=== PATIENT | female | born 1950 | race Caucasian/White ===

== ENCOUNTER 2017-02-04 11:21 | Day surgery (SDC) | payer BC ==
[2017-02-04] MEDS ORDERED: MORPHINE SULFATE 2 MG/ML DISP.SYRIN IV PRN (11:36)
[2017-02-04] MEDS ORDERED: ONDANSETRON HCL/PF 2 MG/ML VIAL IV PRN (11:37)
[2017-02-04] MEDS ORDERED: NORMAL SALINE 1,000 ML IV ONE ×2 (12:25→17:00)
--- NOTE | 2017-02-04 14:43 | OR ---
Operative Report - Dictated Report Narrative: Location: Main OR Anesthesia: General Surgeon: Dr. Pagan Preoperative diagnosis: Right mid/proximal ureteral calculus stone(s) Postoperative diagnosis: Same, urethral stricture/narrowing post dilation Procedure: #1 [place] sound urethral dilation followed by Cystoscopy with right stone manipulation without removal and placement of 6 x 24 double-J stent #2 right ESWL Indications: 66-year-old female with right-sided flank pain. CT and KUB with large proximal right ureteral calculus. Discussed options and elected to proceed with above-mentioned procedure. Description: Consent obtained. Patient brought to the operating room where general endotracheal anesthesia was induced. Placed in the dorsal lithotomy position. Prepped and draped. Timeout taken. Attempted to introduce rigid scope with obturator and sheath however urethral angle and caliber did not accommodate scope. Looks to have very significant relapse with very abnormal angulation/flattening of urethra such that it almost looks straight up and down. Not sure but may have had a sling/urethra procedure based on the way the anatomy looked as well. No obvious sling material. I switched her female sounds and with slow constant pressure starting at 16 was able to sneak into the bladder. There was definite narrowing/give the original dilation. Dilated to 24 [place] with no additional difficulty. Rigid scope was then introduced with obturator. With cystoscopy without obvious infection. The urethra was abrased from the dilation but no obvious sling or other foreign body material. Mild nonspecific inflammation. Washing was obtained sent for cytology and culture. She has definite cystocele type change. Right ureteric orifice identified and using angled Glidewire and 5 [place] catheter I was able with manual reduction of the bladder to intubate the right ureteric orifice and from the wire up to the stone which was easily visible on fluoroscopy. 5 [place] catheter was used to manipulate the stone up into the kidney which was performed successfully with prompt drainage of hydronephrotic urine without evidence of significant infection. Over that wire 6 x 24 double-J stent was deployed after removing the 5 [place] catheter. Patient was turned over to the nursing staff for repositioning to the supine position. I returned after this was accomplished localize the stone into planes and a total of 3000 shocks were delivered with a maximal energy of 24 kV to the stone which now resided in the upper pole calyx/portion of the kidney. Stone was easily visible at the beginning of the case. There was good renographic evidence of fragmentation at the end of the case.. I did place a 20 [place] catheter given the urethral dilation in the appearance of the urethra to be safe. I would like that removed tomorrow unless she is very uncomfortable when she wakes up at which point can probably role the [place] takeout today but she is at risk for redevelopment of stricturing. Specimen: Washing for cytology and culture EBL: 5 ml Condition: tolerated procedure Important findings: Successful dilation of urethral stricture with abnormal urethral angle from cystocele. Successful right-sided stone manipulation without removal and subsequent double-J stenting followed by successful right ESWL. Follow-up: I will either see her next Thursday or Thursday in [place] or [place] respectively with KUB prior the plan being to be nothing by mouth in case we proceed with potential ureteroscopy depending on the KUB versus simple stent removal. I will see her in the office the plan being to make decision on whether or not to proceed to OR based on the KUB and patient preference. I would [facility]....
[2017-02-04] MEDS ORDERED: RINGERS SOLUTION,LACTATED 1,000 ML IV ONE (15:15)
[2017-02-04] MEDS ORDERED: oxyCODONE HCL/ACETAMINOPHEN 1 TAB TABLET PO PRN (15:49)
[2017-02-04] MEDS ORDERED: METOCLOPRAMIDE HCL 5 MG/ML VIAL IV PRN (15:50)
[2017-02-04] MEDS ORDERED: KETOROLAC TROMETHAMINE 15 MG/ML VIAL IV PRN (15:51)
[2017-02-04 17:14] VITALS: BP 125/70
== END 2017-02-04 11:22 | disposition home or self-care (01) ==
LOC: AMB 11:21
PROVIDERS: ATTEND Urology
PROC: 0TF3XZZ Fragmentation in Right Kidney Pelvis, External Approach (ICD-10-PCS; 2017-02-04)
PROC: 0WHR8YZ Insertion of Other Device into Genitourinary Tract, Via Natural or Artificial Opening Endoscopic (ICD-10-PCS; principal; 2017-02-04 13:25)
PROC: 0T7D8ZZ Dilation of Urethra, Via Natural or Artificial Opening Endoscopic (ICD-10-PCS; 2017-02-04 13:25)
DX: N20.1 Calculus of ureter (principal); N35.9 Urethral stricture, unspecified; Z87.891 Personal history of nicotine dependence; Z68.41 Body mass index [BMI] 40.0-44.9, adult

== ENCOUNTER 2017-02-11 11:30 | Day surgery (SDC) | payer BC ==
[~2017-02-11 11:30] MED LIST: KETOROLAC TROMETHAMINE 15 MG/ML VIAL IV PRN; METOCLOPRAMIDE HCL 5 MG/ML VIAL IV PRN; MORPHINE SULFATE 2 MG/ML DISP.SYRIN IV PRN; NORMAL SALINE 1,000 ML IV PRN; ONDANSETRON HCL/PF 2 MG/ML VIAL IV PRN; OXYBUTYNIN CHLORIDE 5 MG TABLET PO PRN; oxyCODONE HCL/ACETAMINOPHEN 1 TAB TABLET PO PRN
--- OUTSIDE RECORDS SUMMARY | 2017-02-11 11:34 | XMS REPORT | Continuity of Care Document ---
:1950 Author Organization [employer] [place] [address] Care Team Providers Name Role Phone Unavailable Primary Care Provider Unavailable Source Comments This disclosure is being made pursuant to the [employer] program and maynot contain all information available regarding this patient.[facility] Active Allergies and Adverse Reactions Not on File Current Medications Be aware that medications may not be up to date as of this document. Alwaysverify current medications with the patient. Not on file Active Problems Not on file Most Recent Encounters Date Type Specialty Providers Description 02/11/2017 Orders Only Provider, Not In System Social History Tobacco Use Types Packs/Day Years Used Date Never Assessed Plan of Care Health Maintenance Due Date Last Done Comments Tetanus/Pertussis (1 - Tdap) 1971 Pap Smear 1973 Colonoscopy 2002 Mammogram 2002 Well Adult Visit 2002 Zoster Vaccine 60+ 2012 Influenza Immunization (#1) 2016 Results from Last 3 Months Comprehensive metabolic panel (02/02/2017)CBC auto differential (02/02/2017) Component Value Range WBC Count 13.2 10^3/mL RBC 4.79 10^6/L Hemoglobin 13.6 g/dL Hematocrit 41.5 % Platelets 328 K/L Specimen BLOOD Narrative See Scanned Results 02-02-17 Laboratory Miscellaneous (02/02/2017)CT ABDOMEN AND PELVIS WO CONTRAST (2016)
[2017-02-11] MEDS ORDERED: NORMAL SALINE 1,000 ML IV ONE (13:04)
[2017-02-11] MEDS ORDERED: RINGERS SOLUTION,LACTATED 1,000 ML IV ONE ×2 (13:04→14:15)
--- NOTE | 2017-02-11 14:27 | OR ---
Operative Report - Dictated Report Narrative: Location: Main OR Anesthesia: General Surgeon: Dr. Pagan Preoperative diagnosis: Right proximal ureteral stone(s) Postoperative diagnosis: Same, larger fragment from prior ESWL but all in all I do believe ESWL we'll work in the future provided stone not bigger than 8 mm. Procedure: #1 Cystoscopy with removal of previously placed double-J stent #2 right flexible ureteroscopy with holmium laser lithotripsy and 7 by multi length double j stent Indications: 66-year-old female with 1 cm x 8 mm right proximal ureteral calculus. Underwent ESWL with good radiographic fragmentation with the exception of a solitary piece then approached 5 mm in longest dimension. We discussed options and elected to proceed with above-mentioned procedure as a means to further fragment hopefully prevent downstream trouble with the fragments. Also discussed stenting and she has done well so elected to proceed with repeat stenting my plan originally being to downsize however I did place a 7 [place] stent as the distal ureter remain fairly narrow. She does have significant cystocele also distorting anatomy. Description: Consent obtained. Patient brought to the operating room where general endotracheal anesthesia was induced. Placed in the dorsal lithotomy position. Prepped and draped. Timeout taken. Rigid cystoscope sheath with obturator introduced into the bladder. Angle required to enter bladder is parallel to urethra secondary to cystocele. Basically straight up and down in relationship to the pubic symphysis. Previously placed stent identified grasped pulled per urethra Bentson wire advanced through the stent stent removed. Tried to navigate flexible scope alongside wire but could not do so. Dual lumen catheter introduced with some resistance at the ureteric orifice. Super Stiff wire advanced and with both wires in place I advanced the dual lumen catheter meeting some mild resistance in the distal few centimeters of ureter. Dual lumen removed. Carrillo secured as a safety wire. Flexible scope advanced over the Super Stiff wire. Stone had fragmented from ESWL there were some smaller pieces downstream that were clinically insignificant. There was a larger piece lodged where the stent held it in place and this flushed up into the kidney. There were several other smaller pieces in the kidney. I do believe this 5 mm fragment would've cause trouble in the consistency was actually pretty hard in terms of overall consistency of the stone but ESWL had done a pretty good job. 270 fiber was brought in 0.5-0.6 J with a rate of 40 were used to fragment everything into submillimeter pieces. I hovered for a while and continued to treat with good results. Withdrew the flexible scope down the ureter leaving the Bentson wire in place. The distal third remained a bit narrow compared to the rest. Given this finding I did not feel comfortable with 5 [place] stent alone as I felt I can get more passive dilation from a 7 [place] and with the current fragmentation should be okay. Over the Bentson wire using fluoroscopy 7 by multi length was deployed. Bladder drained. Specimen: No fragment obtained yet EBL: 0 ml Condition: tolerated procedure Important findings: Fragment from ESWL successfully treated. Relative narrowing and distal third of ureter post-successful 7 [place] stenting Follow-up: Next Thursday in for flexible cystoscopy and stent removal, no anesthesia, Cipro by mouth 500 mg. If miserable can remove sooner but we'll need to come to [place].
[2017-02-11 16:15] VITALS: BP 125/67
== END 2017-02-11 11:31 | disposition home or self-care (01) ==
LOC: AMB 11:30
PROVIDERS: ATTEND Urology
PROC: 0T768DZ Dilation of Right Ureter with Intraluminal Device, Via Natural or Artificial Opening Endoscopic (ICD-10-PCS; 2017-02-11)
PROC: 0TF68ZZ Fragmentation in Right Ureter, Via Natural or Artificial Opening Endoscopic (ICD-10-PCS; principal; 2017-02-11 13:35)
DX: N20.1 Calculus of ureter (principal); Z68.41 Body mass index [BMI] 40.0-44.9, adult; Z87.891 Personal history of nicotine dependence

== ENCOUNTER 2017-02-18 11:52 | Day surgery (SDC) | payer BC ==
[~2017-02-18 11:52] MED LIST changes: +CIPROFLOXACIN HCL 500 MG TABLET PO PRN; -KETOROLAC TROMETHAMINE 15 MG/ML VIAL IV PRN; -METOCLOPRAMIDE HCL 5 MG/ML VIAL IV PRN; -MORPHINE SULFATE 2 MG/ML DISP.SYRIN IV PRN; -NORMAL SALINE 1,000 ML IV PRN; -ONDANSETRON HCL/PF 2 MG/ML VIAL IV PRN; -OXYBUTYNIN CHLORIDE 5 MG TABLET PO PRN; -oxyCODONE HCL/ACETAMINOPHEN 1 TAB TABLET PO PRN
--- OUTSIDE RECORDS SUMMARY | 2017-02-18 11:56 | XMS REPORT | Continuity of Care Document ---
:1950 Author Organization [employer] [employer] [place] [address] Care Team Providers Name Role Phone Unavailable Primary Care Provider Unavailable Source Comments This disclosure is being made pursuant to the [employer] program and maynot contain all information available regarding this patient.[facility] Active Allergies and Adverse Reactions Not on File Current Medications Be aware that medications may not be up to date as of this document. Alwaysverify current medications with the patient. Prescription Sig. Disp. Refills Start Date End Date Status levothyroxine Take 1 tablet 90 tablet 1 02/16/2017 Active (SYNTHROID, by mouth LEVOTHROID) 75 MCG every morning tablet on an empty stomach. lisinopril-hydrochl Take 1 tablet 90 tablet 3 02/16/2017 Active orothiazide by mouth (ZESTORETIC) daily. 10-12.5 MG per tablet montelukast Take 1 tablet 90 tablet 1 02/16/2017 Active (SINGULAIR) 10 MG by mouth tablet nightly. etodolac (LODINE) Take 1 60 capsule 3 02/16/2017 Active 300 MG capsule capsule by mouth every 8 (eight) hours. levothyroxine Take 1 tablet 90 tablet 1 02/16/2017 02/16/2017 Discontinued (SYNTHROID, by mouth LEVOTHROID) 75 MCG every morning tablet on an empty stomach. lisinopril-hydrochl Take 1 tablet 90 tablet 3 02/16/2017 02/16/2017 Discontinued orothiazide by mouth (ZESTORETIC) daily. 10-12.5 MG per tablet montelukast Take 1 tablet 90 tablet 1 02/16/2017 02/16/2017 Discontinued (SINGULAIR) 10 MG by mouth tablet nightly. Active Problems Not on file Most Recent Encounters Date Type Specialty Providers Description 02/16/2017 Telephone Family Medicine Mirlande Hendricks RN Medication Refill 02/11/2017 Orders Only Provider, Not In System Social History Tobacco Use Types Packs/Day Years Used Date Never Assessed Plan of Care Health Maintenance Due Date Last Done Comments Hepatitis C Screening 1970 Tetanus/Pertussis (1 - Tdap) 1971 Pap Smear [...]
--- NOTE | 2017-02-18 14:23 | OR ---
Operative Report - Dictated Report Narrative: Preoperative diagnosis: Indwelling stent Postoperative diagnosis: Same Anesthesia: None Procedure: Flexible cystoscopy with stent removal Indications: Indwelling stent Descritpion: Consent obtained. Patient prepped and drapped. Lidocaine jelly used to anesthetize urethra. Flexible scope inserted and navigated to bladder. Stent identified, grasped and pulled per urethra. Patient tolerated. EBL: 0 ml Specimen: None but there were plenty of stone fragments in the bladder Condition: Tolerated procedure Follow-up: 2 weeks for dietary recommendations. Still need stone.
[2017-02-18 15:44] VITALS: BP 115/64
== END 2017-02-18 11:53 | disposition home or self-care (01) ==
LOC: AMB 11:52
PROVIDERS: ATTEND Urology
PROC: 0TP98DZ Removal of Intraluminal Device from Ureter, Via Natural or Artificial Opening Endoscopic (ICD-10-PCS; principal; 2017-02-18 14:15)
DX: Z46.6 Encounter for fitting and adjustment of urinary device (principal); Z87.891 Personal history of nicotine dependence; Z68.41 Body mass index [BMI] 40.0-44.9, adult